=== PATIENT | male | born 1985 | race Caucasian/White ===

== ENCOUNTER 2020-09-10 11:03 | Emergency (ER) | payer MEDICAID ==
[~2020-09-10] VITALS: Ht 165.1 cm; Wt 86.4 kg
[2020-09-10 14:08] VITALS: BP 122/65
== END 2020-09-10 14:16 | disposition home or self-care (01) ==
LOC: EMS 11:08
DX: S82.891A Other fracture of right lower leg, initial encounter for closed fracture (principal); X58.XXXA Exposure to other specified factors, initial encounter; Y93.89 Activity, other specified; Y92.89 Other specified places as the place of occurrence of the external cause; Y99.8 Other external cause status
CPT/HCPCS: 29515; 99283